=== PATIENT | female | born 1965 | race African-American/Black ===

== ENCOUNTER 2016-10-10 19:29 | Emergency (ER) ==
[2016-10-10 20:48] LABS: URINE SOURCE VOIDED
[2016-10-10 20:53] LABS: BILIRUBIN URINE NEGATIVE (NEGATIVE); BLOOD URINE 2+ (NEGATIVE); CLARITY SL. CLOUDY (CLEAR); COLOR YELLOW; LEUKOCYTES URINE 2+ (NEGATIVE); NITRITE URINE NEGATIVE (NEGATIVE); PH URINE 6.5; UROBILINOGEN URINE NORMAL
[2016-10-10 20:56] LABS: UR AMPHETAMINES QUAL NONE DETECTED (NONE DETECT); UR BARBITUATES QUAL NONE DETECTED (NONE DETECT); UR BENZODIAZEPIN QUAL NONE DETECTED (NONE DETECT); UR COCAINE QUAL NONE DETECTED (NONE DETECT); UR MDMA QUAL NONE DETECTED (NONE DETECT); UR METHADONE QUAL NONE DETECTED (NONE DETECT); UR METHAMPHETAMINE QUAL NONE DETECTED (NONE DETECT); UR OPIATES QUAL NONE DETECTED (NONE DETECT); UR PCP QUAL NONE DETECTED (NONE DETECT); UR TCA QUAL NONE DETECTED (NONE DETECT)
[2016-10-10 20:57] LABS: UR CANNABINOIDS QUAL NONE DETECTED (NONE DETECT); UR OXYCODONE QUAL NONE DETECTED (NONE DETECT)
[2016-10-10 21:03] LABS: URINE CULTURE PL NEEDED? YES; URINE EPITHELIAL CELLS <10 /HPF (<10)
[2016-10-10 21:25] LABS: BASO% 0.2 % (0.0-0.8); HEMATOCRIT 31.3 % (37.0-47.0); HEMOGLOBIN 11.2 g/dL (12.0-16.0); IMM GRAN# 0.03 X1000 (0.0-0.04); IMM GRAN% 0.2 % (0.0-0.5); LYMPH# 1.12 X1000 (1.2-3.4); LYMPH% 7.3 % (20.5-51.1); MANUAL DIFF NEEDED? YES; MCH 28.4 PG (27-31); MCHC 35.8 g/dL (33-37); MCV 79.4 FL (81-99); MONO# 0.35 X1000 (0.11-0.59); MONO% 2.3 % (1.7-9.3); MPV 9.7 FL (7.4-10.4); PLT 369 X1000 (130-400); RBC 3.94 XMIL (4.2-5.4)
[2016-10-10 21:31] LABS: ALBUMIN 3.9 g/dL (3.5-5.0); BANDS 1 % (0-1); CALCIUM 9.8 mg/dL (8.8-10.2); LYMPHS 5 % (21-51); MONO 2 % (1-9); POTASSIUM 3.9 mmol/L (3.5-5.1); TOTAL BILIRUBIN 0.3 mg/dL (0.20-1.00); TOTAL PROTEIN 8.1 g/dL (6.3-8.3)
[2016-10-10 21:32] LABS: HYPOCHROM 1+
[2016-10-10 21:33] LABS: TARGET CELLS OCCASIONAL
[2016-10-10] MEDS ORDERED: MORPHINE IV ONE (21:42)
[2016-10-10] MEDS ORDERED: ZOFRAN IV ONE (21:42)
[2016-10-10] MEDS ORDERED: NS 1,000 ML IV ONE (21:43)
--- NOTE | 2016-10-10 22:18 | PROVIDER DOCUMENTATION ---
HPI-Abdominal Pain/GI Problem - General Chief Complaint: Back Pain Stated Complaint: LOW BACK PAIN Time Seen by Provider: 10/10/16 21:23 Source: patient Allergies/Adverse Reactions: Patient Allergies Allergy/AdvReac Type Severity Reaction Status Date / Time butorphanol tartrate * Allergy Intermediate Unknown Verified 09/10/16 19:48 [From Stadol] ketorolac tromethamine * Allergy Unknown Verified 09/10/16 19:48 [From Toradol] meperidine HCl * Allergy Unknown Verified 09/10/16 19:48 [From Demerol] Home Medications: Amlodipine Besylate [Norvasc] 10 mg PO DAILY 09/11/16 Dicyclomine [Bentyl] 10 mg PO 4XDAY 09/11/16 Docusate Sodium [Colace] 100 mg PO BID 09/11/16 Escitalopram [Lexapro] 20 mg PO DAILY 09/11/16 Insulin Detemir [Levemir] 20 unit SQ QHS 09/11/16 Insulin Detemir [Levemir] 40 unit SQ QAM 09/11/16 LISINOpril [Prinivil] 20 mg PO DAILY 09/11/16 Metoclopramide [Reglan] 10 mg PO DIRECTED 09/11/16 Metoprolol Succinate E.r. [Toprol Xl] 25 mg PO DAILY 09/11/16 - History of Present Illness-ABD Nature of Presenting Problems: 51 y/o F with history of DM, HTN, Sickle cell, diabetic gastroparesis presents with N/V, generalized abdominal pain that began this morning. Patient describes pain as sharp, intermittent and radiating to back. She denies any aggravating or relieving factors. She did not take any of her home meds today. Patient states she was diagnosed with lung cancer during her last hospitalization and is scheduled to begin chemo for lung cancer on October 15, however upon chart review, there is no lung mass mentioned on CT chest done here in August 2016. Abdominal Pain Onset Location: reports: generalized abdomen Pain Radiation: reports: back Quality of Pain: reports: sharp Severity in ED: reports: severe Onset/Duration: reports: this morning Timing: reports: constant Activities at Onset: reports: none Modifying Factors: improves with: nothing Associated Symptoms: reports: nausea, vomiting. denies: diarrhea, fever/chills Review of Systems - Adult - REVIEW OF SYSTEMS - ADULT Constitutional: reports: no symptoms reported. denies: chills, fever Eyes: reports: no symptoms reported Ears, Nose, Mouth & Throat: reports: no symptoms reported Cardiovascular: reports: no symptoms reported. denies: chest pain Respiratory: reports: no symptoms reported. denies: cough, shortness of breath , wheezing Gastrointestinal: reports: see HPI Genitourinary: reports: no symptoms reported Musculoskeletal: reports: back pain. denies: muscle aches, neck pain Integumentary: reports: no symptoms reported. denies: itching, rash Neurological: reports: no symptoms reported. denies: dizziness/vertigo, numbness Psychiatric: reports: no symptoms reported Endocrine: reports: no symptoms reported Hematologic/Lymphatic: reports: no symptoms reported Allergic/Immunologic: reports: no symptoms reported All Other Systems: Reviewed and Negative Past History - Adult - PAST MEDICAL HISTORY-ADULT Review of Records: reports: Nursing Assessment Review, Medications Reviewed Major Childhood Illnesses: reports: denies history Cardiovascular: reports: HTN Respiratory: reports: denies history Gastrointestinal: reports: cancer Obstetrical/Gynecological: reports: denies history Genitourinary: reports: denies history Musculoskeletal: reports: denies history Neurological: reports: denies history Endocrine/Immune: reports: Diabetes Sickle Cell Genotype:: SS Other Conditions: reports: denies history - PRIOR SURGERIES/PROCEDURES Surgical/Procedure History: reports: appendectomy - IMMUNIZATION STATUS Childhood Immunizations: See Nurse Assessment Flu Vaccine: See Nurse Assessment - FAMILY HISTORY Family History: reviewed, not pertinent Physical Exam-General - PHYSICAL EXAM-ADULT Initial Vital Signs Reviewed: Yes - CONSTITUTIONAL General Appearance: alert, other (sleeping in exam room when i entered. she awoke after I repeated her name several times then began rolling around and yelling.) - EYES Eyes: PERRL/EOMI, pink conjunctivae - HEAD, EARS, NOSE, MOUTH & THROAT HENMT: normocephalic/atraumatic, moist mucous membranes, normal ENT inspection - NECK Neck: non-tender, full range of motion, normal inspection - RESPIRATORY Respiratory: chest non-tender, lungs clear, normal breath sounds - CARDIOVASCULAR Cardiovascular: normal peripheral pulses, regular rate, rhythm, no edema - GASTROINTESTINAL (ABDOMEN) Abdominal Exam: normal bowel sounds, soft, tenderness (generalized) - LYMPHATIC Lymphatic: no adenopathy - MUSCULOSKELETAL Back Exam: normal inspection, no CVA tenderness, no vertebral tenderness Extremity: normal range of motion, non-tender, normal gait - SKIN Integumentary: normal color, normal turgor, warm/dry - NEUROLOGIC Neurologic: grossly normal, no motor/sensory deficits - PSYCHIATRIC Psych/Mental Status: normal mood/affect, normal thought content, normal thought process, oriented x 3 Progress - PLAN OF CARE/RESULTS Progress/Plan/Lab Results: Laboratory Tests 10/10/16 10/10/16 10/10/16 19:50 19:50 21:10 WBC RBC Hgb Hct MCV MCH MCHC RDW Std Deviation Plt Count MPV Immature Gran % (Auto) Neut % (Auto) Lymph % (Auto) Kings % (Auto) Eos % (Auto) Baso % (Auto) Immature Gran # (Auto) Neut # (Auto) Lymph # (Auto) Kings # (Auto) Eos # (Auto) Baso # (Auto) Segmented Neutrophils Band Neutrophils Lymphocytes Monocytes Hypochromia Target Cells Sodium 134 L Potassium 3.9 Chloride 97 L Carbon Dioxide 21 L Anion Gap 16 BUN 18 Creatinine 1.0 H Estimated GFR/1.73 m2 58 BUN/Creatinine Ratio 18 Glucose 385 H POC Glucose Calculated Osmolality 286 Calcium 9.8 Total Bilirubin 0.30 AST 13 ALT 14 Alkaline Phosphatase 121 H Total Protein 8.1 Albumin 3.9 Globulin 4.0 Albumin/Globulin Ratio 1.0 Lipase Urine Source VOIDED Urine Color YELLOW Urine Clarity SL. CLOUDY A Urine pH 6.5 Ur Specific Hilton 1.010 Urine Protein 3+(500 mg/dL) A Urine Ketones 1+(Small) A Urine Blood 2+ A Urine Nitrite NEGATIVE Urine Bilirubin NEGATIVE Urine Urobilinogen NORMAL Urine Microscopic RBC 10-20 A Urine WBC 2+ A Urine Microscopic WBC 10-20 A Ur Epithelial Cells <10 Urine Bacteria 4+ Urine Glucose 3+(500 mg/dL) A Urine Opiates Screen NONE DETECTED Ur Oxycodone Screen NONE DETECTED Urine Methadone Screen NONE DETECTED Ur Barbituates Screen NONE DETECTED Ur Tricyclics Screen NONE DETECTED Ur Phencyclidine Scrn NONE DETECTED Ur Amphetamines Screen NONE DETECTED U Methamphetamines Scrn NONE DETECTED Urine MDMA Screen NONE DETECTED U Benzodiazepines Scrn NONE DETECTED Urine Cocaine Screen NONE DETECTED U Cannabinoids Screen NONE DETECTED 10/10/16 10/10/16 10/11/16 21:10 21:10 00:47 WBC 15.44 H RBC 3.94 L Hgb 11.2 L Hct 31.3 L MCV 79.4 L MCH 28.4 MCHC 35.8 RDW Std Deviation 12.8 Plt Count 369 MPV 9.7 Immature Gran % (Auto) 0.2 Neut % (Auto) 90.0 H Lymph % (Auto) 7.3 L Kings % (Auto) 2.3 Eos % (Auto) 0.0 Baso % (Auto) 0.2 Immature Gran # (Auto) 0.03 Neut # (Auto) 13.91 H Lymph # (Auto) 1.12 L Kings # (Auto) 0.35 Eos # (Auto) 0.00 Baso # (Auto) 0.03 Segmented Neutrophils 92 H Band Neutrophils 1 Lymphocytes 5 L Monocytes 2 Hypochromia 1+ Target Cells OCCASIONAL Sodium Potassium Chloride Carbon Dioxide Anion Gap BUN Creatinine Estimated GFR/1.73 m2 BUN/Creatinine Ratio Glucose POC Glucose 293 H D Calculated Osmolality Calcium Total Bilirubin AST ALT Alkaline Phosphatase Total Protein Albumin Globulin Albumin/Globulin Ratio Lipase 61 H Urine Source Urine Color Urine Clarity Urine pH Ur Specific Hilton Urine Protein Urine Ketones Urine Blood Urine Nitrite Urine Bilirubin Urine Urobilinogen Urine Microscopic RBC Urine WBC Urine Microscopic WBC Ur Epithelial Cells Urine Bacteria Urine Glucose Urine Opiates Screen Ur Oxycodone Screen Urine Methadone Screen Ur Barbituates Screen Ur Tricyclics Screen Ur Phencyclidine Scrn Ur Amphetamines Screen U Methamphetamines Scrn Urine MDMA Screen U Benzodiazepines Scrn Urine Cocaine Screen U Cannabinoids Screen 10/11/16 01:30 WBC RBC Hgb Hct MCV MCH MCHC RDW Std Deviation Plt Count MPV Immature Gran % (Auto) Neut % (Auto) Lymph % (Auto) Kings % (Auto) Eos % (Auto) Baso % (Auto) Immature Gran # (Auto) Neut # (Auto) Lymph # (Auto) Kings # (Auto) Eos # (Auto) Baso # (Auto) Segmented Neutrophils Band Neutrophils Lymphocytes Monocytes Hypochromia Target Cells Sodium Potassium Chloride Carbon Dioxide Anion Gap BUN Creatinine Estimated GFR/1.73 m2 BUN/Creatinine Ratio Glucose POC Glucose 278 H Calculated Osmolality Calcium Total Bilirubin AST ALT Alkaline Phosphatase Total Protein Albumin Globulin Albumin/Globulin Ratio Lipase Urine Source Urine Color Urine Clarity Urine pH Ur Specific Hilton Urine Protein Urine Ketones Urine Blood Urine Nitrite Urine Bilirubin Urine Urobilinogen Urine Microscopic RBC Urine WBC Urine Microscopic WBC Ur Epithelial Cells Urine Bacteria Urine Glucose Urine Opiates Screen Ur Oxycodone Screen Urine Methadone Screen Ur Barbituates Screen Ur Tricyclics Screen Ur Phencyclidine Scrn Ur Amphetamines Screen U Methamphetamines Scrn Urine MDMA Screen U Benzodiazepines Scrn Urine Cocaine Screen U Cannabinoids Screen Orders Category Date Time Status Glucose Finger Stick [FSBS/Accucheck Result] NOW Care 10/10/16 23:59 Active PO Fluid Challenge DIRECTED Care 10/10/16 23:59 Active Repeat Vital Signs .Blood Pressure Care 10/10/16 22:19 Active Repeat Vital Signs .Heart Rate Care 10/10/16 22:[address] ABD/PELVIS W/ IV CONT ONLY [CT] Stat Exams 10/10/16 21:41 Taken CBC WITH DIFF [HEME] Stat Lab 10/10/16 21:10 Completed CMP [COMPREHENSIVE METABOLIC PANEL] [CHEM] Stat Lab 10/10/16 21:10 Completed LIPASE [CHEM] Stat Lab 10/10/16 21:10 Completed UDS [URINE DRUG SCREEN PL] Stat Lab 10/10/16 19:[address] W/POSS RFLX CULT [URINALYSIS] Stat Lab 10/10/16 19:50 Completed URINE CULTURE [RM] Routine Lab 10/10/16 21:04 Received 0.9% Sodium Chloride Inj [Ns] 1,000 ml Med 10/10/16 21:43 Discontinued IV 999 mls/hr Hydromorphone [Dilaudid] Med 10/10/16 22:42 Discontinued 1 mg IV NOW ONE Metoclopramide [Reglan] Med 10/10/16 23:59 Discontinued 10 mg IV NOW ONE Morphine Med 10/10/16 21:42 Discontinued 4 mg IV NOW ONE Ondansetron [Zofran] Med 10/10/16 21:42 Discontinued 4 mg IV NOW ONE Promethazine [Phenergan] Med 10/11/16 00:22 Discontinued 25 mg IM NOW ONE Sodium Chloride 0.9% 10 ml Med 10/11/16 00:28 Discontinued .ROUTE As Directed Vital Signs Temp Pulse Resp BP Pulse Ox 10/10/16 23:11 110 H 190/95 10/10/16 22:40 98.0 F 113 H 22 228/117 10/10/16 19:54 98.1 F 129 H 18 200/120 98 butorphanol tartrate * [From Stadol] Allergy (Intermediate, Verified 09/10/16 19 :48) Unknown ketorolac tromethamine * [From Toradol] Allergy (Verified 09/10/16 19:48) Unknown meperidine HCl * [From Demerol] Allergy (Verified 09/10/16 19:48) Unknown Amlodipine Besylate [Norvasc] 10 mg PO DAILY 09/11/16 Dicyclomine [Bentyl] 10 mg PO 4XDAY 09/11/16 Docusate Sodium [Colace] 100 mg PO BID 09/11/16 Escitalopram [Lexapro] 20 mg PO DAILY 09/11/16 Insulin Detemir [Levemir] 20 unit SQ QHS 09/11/16 Insulin Detemir [Levemir] 40 unit SQ QAM 09/11/16 LISINOpril [Prinivil] 20 mg PO DAILY 09/11/16 Metoclopramide [Reglan] 10 mg PO DIRECTED 09/11/16 Metoprolol Succinate E.r. [Toprol Xl] 25 mg PO DAILY 09/11/16 Ondansetron Odt [Zofran 4 mg Odt] 4 mg PO Q6H PRN PRN #20 tablet 10/11/16 Tramadol [Ultram] 50 mg PO Q6H PRN PRN #12 tablet 10/11/16 Laboratory 10/11/16 10/11/16 10/10/16 01:30 00:47 21:10 WBC RBC Hgb Hct MCV MCH MCHC RDW Std Deviation Plt Count MPV Immature Gran % (Auto) Neut % (Auto) Lymph % (Auto) Kings % (Auto) Eos % (Auto) Baso % (Auto) Immature Gran # (Auto) Neut # (Auto) Lymph # (Auto) Kings # (Auto) Eos # (Auto) Baso # (Auto) Segmented Neutrophils Band Neutrophils Lymphocytes Monocytes Hypochromia Target Cells Sodium Potassium Chloride Carbon Dioxide Anion Gap BUN Creatinine Estimated GFR/1.73 m2 BUN/Creatinine Ratio Glucose POC Glucose 278 H 293 H D Calculated Osmolality Calcium Total Bilirubin AST ALT Alkaline Phosphatase Total Protein Albumin Globulin Albumin/Globulin Ratio Lipase 61 H Urine Source Urine Color Urine Clarity Urine pH Ur Specific Hilton Urine Protein Urine Ketones Urine Blood Urine Nitrite Urine Bilirubin Urine Urobilinogen Urine Microscopic RBC Urine WBC Urine Microscopic WBC Ur Epithelial Cells Urine Bacteria Urine Glucose Urine Opiates Screen Ur Oxycodone Screen Urine Methadone Screen Ur Barbituates Screen Ur Tricyclics Screen Ur Phencyclidine Scrn Ur Amphetamines Screen U Methamphetamines Scrn Urine MDMA Screen U Benzodiazepines Scrn Urine Cocaine Screen U Cannabinoids Screen 10/10/16 10/10/16 10/10/16 21:10 21:10 19:50 WBC 15.44 H RBC 3.94 L Hgb 11.2 L Hct 31.3 L MCV 79.4 L MCH 28.4 MCHC 35.8 RDW Std Deviation 12.8 Plt Count 369 MPV 9.7 Immature Gran % (Auto) 0.2 Neut % (Auto) 90.0 H Lymph % (Auto) 7.3 L Kings % (Auto) 2.3 Eos % (Auto) 0.0 Baso % (Auto) 0.2 Immature Gran # (Auto) 0.03 Neut # (Auto) 13.91 H Lymph # (Auto) 1.12 L Kings # (Auto) 0.35 Eos # (Auto) 0.00 Baso # (Auto) 0.03 Segmented Neutrophils 92 H Band Neutrophils 1 Lymphocytes 5 L Monocytes 2 Hypochromia 1+ Target Cells OCCASIONAL Sodium 134 L Potassium 3.9 Chloride 97 L Carbon Dioxide 21 L Anion Gap 16 BUN 18 Creatinine 1.0 H Estimated GFR/1.73 m2 58 BUN/Creatinine Ratio 18 Glucose 385 H POC Glucose Calculated Osmolality 286 Calcium 9.8 Total Bilirubin 0.30 AST 13 ALT 14 Alkaline Phosphatase 121 H Total Protein 8.1 Albumin 3.9 Globulin 4.0 Albumin/Globulin Ratio 1.0 Lipase Urine Source VOIDED Urine Color YELLOW Urine Clarity SL. CLOUDY A Urine pH 6.5 Ur Specific Hilton 1.010 Urine Protein 3+(500 mg/dL) A Urine Ketones 1+(Small) A Urine Blood 2+ A Urine Nitrite NEGATIVE Urine Bilirubin NEGATIVE Urine Urobilinogen NORMAL Urine Microscopic RBC 10-20 A Urine WBC 2+ A Urine Microscopic WBC 10-20 A Ur Epithelial Cells <10 Urine Bacteria 4+ Urine Glucose 3+(500 mg/dL) A Urine Opiates Screen Ur Oxycodone Screen Urine Methadone Screen Ur Barbituates Screen Ur Tricyclics Screen Ur Phencyclidine Scrn Ur Amphetamines Screen U Methamphetamines Scrn Urine MDMA Screen U Benzodiazepines Scrn Urine Cocaine Screen U Cannabinoids Screen 10/10/16 19:50 WBC RBC Hgb Hct MCV MCH MCHC RDW Std Deviation Plt Count MPV Immature Gran % (Auto) Neut % (Auto) Lymph % (Auto) Kings % (Auto) Eos % (Auto) Baso % (Auto) Immature Gran # (Auto) Neut # (Auto) Lymph # (Auto) Kings # (Auto) Eos # (Auto) Baso # (Auto) Segmented Neutrophils Band Neutrophils Lymphocytes Monocytes Hypochromia Target Cells Sodium Potassium Chloride Carbon Dioxide Anion Gap BUN Creatinine Estimated GFR/1.73 m2 BUN/Creatinine Ratio Glucose POC Glucose Calculated Osmolality Calcium Total Bilirubin AST ALT Alkaline Phosphatase Total Protein Albumin Globulin Albumin/Globulin Ratio Lipase Urine Source Urine Color Urine Clarity Urine pH Ur Specific Hilton Urine Protein Urine Ketones Urine Blood Urine Nitrite Urine Bilirubin Urine Urobilinogen Urine Microscopic RBC Urine WBC Urine Microscopic WBC Ur Epithelial Cells Urine Bacteria Urine Glucose Urine Opiates Screen NONE DETECTED Ur Oxycodone Screen NONE DETECTED Urine Methadone Screen NONE DETECTED Ur Barbituates Screen NONE DETECTED Ur Tricyclics Screen NONE DETECTED Ur Phencyclidine Scrn NONE DETECTED Ur Amphetamines Screen NONE DETECTED U Methamphetamines Scrn NONE DETECTED Urine MDMA Screen NONE DETECTED U Benzodiazepines Scrn NONE DETECTED Urine Cocaine Screen NONE DETECTED U Cannabinoids Screen NONE DETECTED Patient's symptoms improved with treatment. No further vomiting in the ER. Vitals improved with treatment of pain. BG improved with fluids. Discussed findings with Dr. Rhoades who agrees no treatment needed currently for clot in ovarian vein. 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 Will discharge home with symptomatic treatment. Advised patient to take home meds as directed and follow up with Dr. Muhammad per discharge instructions from her last hospitalization. - CT/MRI 1 CT Study: Abdomen, Pelvis CT Results: clot in ovarian vein. otherwise no acute process. - CONSULTS/PCP/HOSPITALIST Notification #1 *Consult/PCP/Hospitalist*: Sohail BLOW MOLDING MACHINE OPERATOR Time Discussed: 23:47 Reason/Comments: clot in left lower ovarian vein Consult Disposition: other (no intervention requried at this time) Departure - Departure Time of Disposition Order: 02:10 DIAGNOSIS: Nausea & vomiting, Abdominal pain Disposition: HOME 01 Certified Medical Emergency: Emergent Condition: Good Additional Instructions: ED Follow Up Instructions: You have been treated by a care provider in the Emergency Department. These instructions are being provided to you so you can have an understanding of how to care for yourself upon discharge. Upon discharge from the Emergency Department, you are responsible for making arrangements for follow-up care by a physician of your choice. Take all prescribed medications as directed. Return to the Emergency Department immediately for any new or worsening symptoms. You may call the Physician Referral phone number at [phone] to obtain a list of Physicians who are taking new patients. Prescriptions: Tramadol [Ultram] 50 mg PO Q6H PRN PRN #12 tablet PRN Reason: Pain Ondansetron Odt [Zofran 4 mg Odt] 4 mg PO Q6H PRN PRN #20 tablet PRN Reason: vomiting and nausea Referrals: None,PCP [Primary Care Provider] - Sonia Sauceda MD [STAFF PHYSICIAN] - Jacqui Muhammad MD [STAFF PHYSICIAN] - Attestation - Physician/ Mid-level Attestation Patient care was provided by Mid-level provider (LOCAL COMBINATION TRUCK DRIVER/PA):: Yes Mid-level provider:: Fior Hogue Mid-level documentation review:: The Mid-level provider documentation, treatment plan and medical decision making was reviewed by the physician who agrees with all treatment and medical decision making by the P.
[2016-10-10] MEDS ORDERED: DILAUDID IV ONE (22:42)
[2016-10-10] MEDS ORDERED: REGLAN IV ONE (23:59)
[2016-10-11] MEDS ORDERED: PHENERGAN IM ONE (00:22)
[2016-10-11] MEDS ORDERED: SODIUM CHLORIDE 0.9% 0 ML ONE (00:28)
[2016-10-11 02:23] VITALS: BP 149/82
--- NOTE | 2016-10-11 08:52 | Diag Imaging Result Document ---
PROCEDURE NAME: CT ABD/PELVIS W/ IV CONT ONLY - 10/10/2016 CT ABDOMEN AND PELVIS WITH IV CONTRAST: COMPARISON: 09/09/2016. FINDINGS: There has been a previous cholecystectomy. There are several miniscule low-dense foci in the liver that are nonspecific but probably represent tiny cysts. These appear stable. There is nothing to suggest appendicitis. The appendix is not visualized, however. There is trace nonspecific free fluid layering in the pelvis. There has been a previous hysterectomy. There is a nonocclusive thrombus in the left ovarian vein with no surrounding inflammatory changes to indicate thrombophlebitis. It measures approximately 7 cm in length. No other focal inflammatory changes are identified. There is no evidence of free abdominal gas. The remainder of the solid viscera of the abdomen and pelvis and the remainder of the GI tract is essentially unremarkable. IMPRESSION: 1. Nonocclusive thrombus in the left ovarian vein that appears to be acute and is of unknown significance. 2. Trace nonspecific free fluid in the pelvis. 3. Other incidental/nonacute findings detailed above.
== END 2016-10-11 02:37 | disposition home or self-care (01) ==
LOC: P.ED 19:29
DX: R11.2 Nausea with vomiting, unspecified (principal); R10.84 Generalized abdominal pain; M54.9 Dorsalgia, unspecified; I10 Essential (primary) hypertension; E11.9 Type 2 diabetes mellitus without complications; Z79.899 Other long term (current) drug therapy; Z79.4 Long term (current) use of insulin
CPT/HCPCS: 74177; 80053; 81001; 82948; 83690; 85025; 87077; 87088; 87186; 96361; 96374; 96375; G0477; J1170; J2270; J2405; J2550; J2765; J7030; Q9967